=== PATIENT | male | born 1960 | race Caucasian/White ===

== ENCOUNTER 2021-04-21 10:08 | Outpatient (CLI) | payer OTHER, SELFPAY ==
[2021-04-21 10:23] LABS: Basophils Absolute Auto 0.03 K/mm3 (0.00-0.10); Basophils Percent Auto 0.4 % (0.0-1.0); Eosinophils Absolute Auto 0.06 K/mm3 (0.02-0.50); Eosinophils Percent Auto 0.8 % (1.0-6.0); Hemoglobin 14.4 g/dL (14.0-18.0); Immature Granulocyte Absolute 0.02 K/mm3 (0.00-0.00); Immature Granulocyte Percent A 0.3 % (0.0-0.0); Lymphocytes Absolute Auto 0.57 K/mm3 (1.10-4.50); Mean Corpuscular HGB Conc 32.7 g/dL (32.0-36.0); Mean Corpuscular Hemoglobin 28.6 pg (27.0-31.0); Mean Corpuscular Volume 87.3 fL (78.0-102.0); Mean Platelet Volume 9.2 fl (8.7-11.0); Monocytes Absolute Auto 1.01 K/mm3 (0.10-0.90); Monocytes Percent Auto 14.1 % (2.0-11.0); Neutrophils Absolute Auto 5.5 K/mm3 (1.7-7.2); Neutrophils Percent Auto 76.4 % (50.0-70.0); Platelet Count Result 206 K/mm3 (150-420); Red Blood Count 5.04 M/mm3 (4.70-6.10); Red Cell Distribution Width 12.6 % (11.6-14.4); White Blood Count 7.2 K/mm3 (4.8-10.8)
[2021-04-21 11:13] LABS: Alanine Aminotransferase 41 U/L (16-63); Albumin Level 3.5 g/dL (3.4-5.0); Alkaline Phosphatase 99 U/L (46-116); Anion Gap 7 mmol/L (8-16); Aspartate Amino Transferase 23 U/L (15-37); Bilirubin,Total 0.3 mg/dL (0.00-1.00); Blood Urea Nitrogen 22 mg/dL (7-18); Calcium 9.4 mg/dL (8.5-10.1); Carbon Dioxide 32 mmol/L (21-32); Chloride 102 mmol/L (98-108); Estimated Glomerular Filt Rate > 60; Glucose 92 mg/dL (70-99); Magnesium 1.9 mg/dL (1.8-2.4); Osmolality Calculated 295 mOsm/kg (285-295); Potassium 4.5 mmol/L (3.5-5.1); Sodium 141 mmol/L (136-145); Total Protein 6.9 g/dL (6.4-8.2)
== END 2021-04-21 10:09 | disposition home or self-care (01) ==
LOC: CHSLAB 10:13
PROVIDERS: Visit Provider Internal Medicine Hematology & Oncology
DX: C01 Malignant neoplasm of base of tongue (principal)
CPT/HCPCS: 36415; 80053; 83735; 85025

== ENCOUNTER 2021-04-23 07:19 | Outpatient (CLI) | payer OTHER, SELFPAY ==
--- NOTE | ~2021-04-23 | CT_ITS ---
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 Drainage. TECHNIQUE: Spiral CT of the neck, chest, abdomen and pelvis was performed following intravenous injec tion of 100 mL Omnipaque 350. Axial, coronal and sagittal images of the neck were reviewed. Axial, coronal and sagittal images of the chest were reviewed. Coronal maximum intensity pixel images of ch est reviewed. Axial, coronal and sagittal images of the abdomen and pelvis were reviewed. The dose- length product (DLP) for this examination was 936.24 mGy-cm. The exposure was tailored according to patient size (auto mA exposure control), and iterative reconstruction (ASIR) was used as additional d ose reduction technique. There is no prior study for comparison. FINDINGS: NECK: There is asymmetry of the airway with thickening of the mucosal regions epiglottis, the aryepig lottic folds, effacement of the left preglottic fat, the left vallecula and piriform sinus. Also the lower aspect of the left sternocleidomastoid is more pronounced than the contralateral side, could be from edema as well. The left internal jugular vein tapers down to the mid cervical level, and is not visualized below, could be effaced from edema. There is no intraluminal filling defect, no venous th rombus identified. Probably all edema from recent radiation treatment. Nasopharynx unremarkable. Righ t internal jugular vein widely patent. Codominant vertebral arteries. The thyroid gland is unremarkab le. The submandibular and parotid glands are symmetric. There is no cervical lymphadenopathy. Th ere are no masses identified. Mild bilateral carotid bulb arterial sclerosis without stenosis. The orbits are unremarkable. Visualized sinuses and mastoid air cells are well aerated. There is advanced cervical spondylosis. CHEST: There is a right-sided portacatheter. There is mild to moderate emphysema. There are approxima tely 30 pulmonary metastases, several demonstrating some amount of cavitation. These measure up to ab out 8 mm in diameter. There are no pleural or pericardial effusions. Tracheobronchial tree is guillen nt. Subcarinal lymph node or nodes measuring 1.4 x 3.1 cm, indeterminate. There is no pneumothorax . Heart normal in size. There is mild coronary arterial calcification, arterial sclerosis. ABDOMEN PELVIS: The liver, spleen, adrenal glands and pancreas are unremarkable. Gallbladder is unre markable. No biliary obstruction. Portal and splenic veins are patent. Kidneys enhance symmetrical ly. There is no hydronephrosis. There is 2.2 cm right renal cyst. The prostate is unremarkable. Th e bladder is unremarkable. There is no retroperitoneal or pelvic lymphadenopathy. There is moderat e scattered arteriosclerotic disease. The appendix is not positively visualized. There is no pericecal inflammatory change to suggest appe ndicitis. The stomach and small bowel are unremarkable. There is expected amount of colonic stool. No free intraperitoneal gas. There are no osteoblastic or osteolytic lesions identified. IMPRESSION: 1. Left-sided oropharyngeal, laryngeal, sternocleidomastoid edema likely radiation related change. 2. Scattered subcentimeter pulmonary metastases. 3. Subcarinal lymphadenopathy, indeterminate. 4. Unremarkable abdomen, pelvis. Reviewed, dictated and finalized at location A. IMPRESSION: 1. Left-sided oropharyngeal, laryngeal, sternocleidomastoid edema likely radia tion related change. 2. Scattered subcentimeter pulmonary metastases. 3. Subcarinal lymphadenopathy, indeterminate. 4. Unremarkable abdomen, pelvis.
== END 2021-04-23 07:20 | disposition home or self-care (01) ==
LOC: CHSIMG 07:21
PROVIDERS: Visit Provider Internal Medicine Hematology & Oncology
DX: C01 Malignant neoplasm of base of tongue (principal); C44.42 Squamous cell carcinoma of skin of scalp and neck
CPT/HCPCS: 70491; 71260; 74177; Q9967

== ENCOUNTER 2021-05-14 08:22 | Outpatient (CLI) | payer OTHER, SELFPAY ==
[2021-05-14] MEDS: SODIUM CHLORIDE 0.9% IV 250 ML 10 ML IVPB (08:45)
[2021-05-14 08:48] LABS: Basophils Absolute Auto 0.03 K/mm3 (0.00-0.10); Basophils Percent Auto 0.5 % (0.0-1.0); Eosinophils Absolute Auto 0.03 K/mm3 (0.02-0.50); Eosinophils Percent Auto 0.5 % (1.0-6.0); Hematocrit 41.7 % (40.0-54.0); Hemoglobin 13.6 g/dL (14.0-18.0); Immature Granulocyte Absolute 0.03 K/mm3 (0.00-0.00); Immature Granulocyte Percent A 0.5 % (0.0-0.0); Lymphocytes Absolute Auto 0.53 K/mm3 (1.10-4.50); Lymphocytes Percent Auto 8.1 % (18.0-42.0); Mean Corpuscular HGB Conc 32.6 g/dL (32.0-36.0); Mean Corpuscular Hemoglobin 28.8 pg (27.0-31.0); Mean Corpuscular Volume 88.3 fL (78.0-102.0); Mean Platelet Volume 9.9 fl (8.7-11.0); Monocytes Absolute Auto 0.67 K/mm3 (0.10-0.90); Monocytes Percent Auto 10.2 % (2.0-11.0); Neutrophils Absolute Auto 5.3 K/mm3 (1.7-7.2); Neutrophils Percent Auto 80.2 % (50.0-70.0); Platelet Count Result 215 K/mm3 (150-420); Red Blood Count 4.72 M/mm3 (4.70-6.10); Red Cell Distribution Width 13.5 % (11.6-14.4); White Blood Count 6.6 K/mm3 (4.8-10.8)
[2021-05-14] MEDS: diphenhydrAMINE HCl INJ 50 MG/ML VIAL 25 MG IV PUSH (08:58)
[2021-05-14] MEDS: FAMOTIDINE 20 MG/2 ML VIAL IV PUSH (08:59)
[2021-05-14 09:04] LABS: Alanine Aminotransferase 31 U/L (16-63); Albumin Level 3.5 g/dL (3.4-5.0); Alkaline Phosphatase 122 U/L (46-116); Anion Gap 9 mmol/L (8-16); Aspartate Amino Transferase 23 U/L (15-37); Bilirubin,Total 0.5 mg/dL (0.00-1.00); Blood Urea Nitrogen 12 mg/dL (7-18); Calcium 8.9 mg/dL (8.5-10.1); Carbon Dioxide 27 mmol/L (21-32); Chloride 100 mmol/L (98-108); Estimated Glomerular Filt Rate > 60; Glucose 148 mg/dL (70-99); Magnesium 1.7 mg/dL (1.8-2.4); Osmolality Calculated 284 mOsm/kg (285-295); Potassium 4.3 mmol/L (3.5-5.1); Sodium 136 mmol/L (136-145); Total Protein 7.1 g/dL (6.4-8.2)
[2021-05-14 09:07] VITALS: BP 128/79; PULSE 80; RESP 14; TEMP 36.6; O2SAT 98
[2021-05-14 09:08] VITALS: BMI 17.4
[2021-05-14] MEDS: FOSAPREPITANT DIMEGLUMINE 150 MG in SODIUM CHLORIDE 0.9% IV 250 ML 500 MG IVPB (09:35)
[2021-05-14 13:30] VITALS: BP 109/64; PULSE 78; RESP 14; TEMP 36.4; O2SAT 98
--- NOTE | 2021-05-14 13:33 | PC.NURSE ---
Patient here for Cycle 1 Day 1 of Erbitux, Carboplatin, 5 FU chemo regimen. Labs drawn and reviewed. Ok'd to proceed with chemo. Mag level 1.7- will need prn dose 1 gm Mag per order today. Education given on chemo. All concerns answered. Chemo regimen administered. SEE MAR. Patient left with Take home pump of 5 FU. Will return 05/15/21 at 1300 to get cartridge changed out of 5 FU and continue at home infusion until Tuesday05/17/21 1300. Will come Tuesday to get pump taken off and chemo bag discarded. Tolerated Chemo well today. Safe exit of hospital.
== END 2021-05-14 08:23 | disposition home or self-care (01) ==
LOC: CHSTREATRM 08:25
PROVIDERS: Visit Provider Internal Medicine Hematology & Oncology
DX: Z51.11 Encounter for antineoplastic chemotherapy (principal); C02.9 Malignant neoplasm of tongue, unspecified
CPT/HCPCS: 36415; 80053; 83735; 85025; 96367; 96375; 96413; 96415; 96416; 96417; J1100; J1200; J1453; J2405; J3475; J7050; J9045; J9055; J9190

== ENCOUNTER 2021-05-15 12:19 | Outpatient (CLI) | payer OTHER, SELFPAY ==
--- NOTE | 2021-05-15 12:51 | PC.NURSE ---
Pt to Outpatient infusion center. Chemo bag changed out with new pump and medication. Pt tolerating chemo infusion well. Instructed to return Tuesday to be deaccessed.
== END 2021-05-15 12:20 | disposition home or self-care (01) ==
PROVIDERS: Visit Provider Internal Medicine Hematology & Oncology
DX: Z45.1 Encounter for adjustment and management of infusion pump (principal); C02.9 Malignant neoplasm of tongue, unspecified
CPT/HCPCS: 96416; J9190

== ENCOUNTER 2021-05-21 08:20 | Outpatient (CLI) | payer OTHER, SELFPAY ==
--- NOTE | 2021-05-21 08:45 | PC.NURSE ---
Pt to Outpatient Infusion Center for chemo. A&Ox3. States he has had some nausea and sore tongue over the last few days. Has no other complaints. PORT accessed without difficulty. Blood drawn and sent to lab. Pt oriented to room. Call gaitan in reach. Breakfast tray ordered. Reminded to call with needs.
[2021-05-21 08:51] LABS: Basophils Absolute Auto 0.03 K/mm3 (0.00-0.10); Basophils Percent Auto 0.6 % (0.0-1.0); Eosinophils Absolute Auto 0.06 K/mm3 (0.02-0.50); Eosinophils Percent Auto 1.3 % (1.0-6.0); Hemoglobin 13.5 g/dL (14.0-18.0); Immature Granulocyte Absolute 0.03 K/mm3 (0.00-0.00); Immature Granulocyte Percent A 0.6 % (0.0-0.0); Lymphocytes Absolute Auto 0.53 K/mm3 (1.10-4.50); Lymphocytes Percent Auto 11.3 % (18.0-42.0); Mean Corpuscular HGB Conc 33.8 g/dL (32.0-36.0); Mean Corpuscular Hemoglobin 29.3 pg (27.0-31.0); Mean Platelet Volume 9.4 fl (8.7-11.0); Monocytes Absolute Auto 0.42 K/mm3 (0.10-0.90); Neutrophils Absolute Auto 3.6 K/mm3 (1.7-7.2); Neutrophils Percent Auto 77.2 % (50.0-70.0); Platelet Count Result 191 K/mm3 (150-420); Red Cell Distribution Width 13.2 % (11.6-14.4); White Blood Count 4.7 K/mm3 (4.8-10.8)
[2021-05-21 09:24] LABS: Alanine Aminotransferase 31 U/L (16-63); Albumin Level 3.5 g/dL (3.4-5.0); Alkaline Phosphatase 119 U/L (46-116); Anion Gap 8 mmol/L (8-16); Aspartate Amino Transferase 16 U/L (15-37); Bilirubin,Total 0.3 mg/dL (0.00-1.00); Blood Urea Nitrogen 17 mg/dL (7-18); Calcium 8.6 mg/dL (8.5-10.1); Carbon Dioxide 28 mmol/L (21-32); Chloride 100 mmol/L (98-108); Estimated Glomerular Filt Rate > 60; Glucose 109 mg/dL (70-99); Magnesium 2.1 mg/dL (1.8-2.4); Osmolality Calculated 284 mOsm/kg (285-295); Sodium 136 mmol/L (136-145); Total Protein 6.9 g/dL (6.4-8.2)
--- NOTE | 2021-05-21 09:56 | PC.NURSE ---
Pharmacy does not have med in house. Tech going to [facility] to roll picker Erbitux. Pt chooses to wait for med to get infused today.
[2021-05-21] MEDS: SODIUM CHLORIDE 0.9% IV 250 ML 10 ML IVPB (11:04)
[2021-05-21 11:18] VITALS: BP 101/60; PULSE 71; RESP 20; TEMP 36.6; O2SAT 100
[2021-05-21] MEDS: diphenhydrAMINE HCl INJ 50 MG/ML VIAL 25 MG IV PUSH (11:35)
[2021-05-21] MEDS: FAMOTIDINE 20 MG/ISO 50 ML 20 MG/50 ML BAG 100 MG IVPB (11:36)
[2021-05-21] MEDS: HEPARIN SODIUM LOCK FLUSH 500 UNITS/5 ML SYRINGE IV PUSH (13:07)
--- NOTE | 2021-05-21 13:20 | PC.NURSE ---
All medications administered as ordered. Pt tolerated well. Has on questions or concerns. Discharged to home ambulatory per self.
== END 2021-05-21 08:21 | disposition home or self-care (01) ==
LOC: CHSTREATRM 08:26
PROVIDERS: Visit Provider Internal Medicine Hematology & Oncology
DX: Z51.11 Encounter for antineoplastic chemotherapy (principal); C02.9 Malignant neoplasm of tongue, unspecified
CPT/HCPCS: 36415; 80053; 83735; 85025; 96365; 96367; 96368; 96374; 96375; 96413; J1100; J1200; J7050; J9055

== ENCOUNTER 2021-05-28 08:13 | Outpatient (CLI) | payer OTHER, SELFPAY ==
[2021-05-28 08:37] VITALS: BP 107/67; PULSE 72; RESP 14; TEMP 36.1; O2SAT 98
[2021-05-28 08:38] VITALS: BMI 17.4
[2021-05-28 08:51] LABS: Basophils Absolute Auto 0.02 K/mm3 (0.00-0.10); Basophils Percent Auto 0.4 % (0.0-1.0); Eosinophils Absolute Auto 0.06 K/mm3 (0.02-0.50); Eosinophils Percent Auto 1.1 % (1.0-6.0); Hemoglobin 13.1 g/dL (14.0-18.0); Immature Granulocyte Absolute 0.03 K/mm3 (0.00-0.00); Immature Granulocyte Percent A 0.5 % (0.0-0.0); Immature Platelet Fraction Pct 3.8 % (1.0-7.0); Lymphocytes Absolute Auto 0.55 K/mm3 (1.10-4.50); Lymphocytes Percent Auto 9.8 % (18.0-42.0); Mean Corpuscular HGB Conc 34.5 g/dL (32.0-36.0); Mean Corpuscular Hemoglobin 29.9 pg (27.0-31.0); Mean Corpuscular Volume 86.8 fL (78.0-102.0); Monocytes Absolute Auto 0.62 K/mm3 (0.10-0.90); Neutrophils Absolute Auto 4.4 K/mm3 (1.7-7.2); Neutrophils Percent Auto 77.2 % (50.0-70.0); Platelet Count Result 98 K/mm3 (150-420); Red Blood Count 4.38 M/mm3 (4.70-6.10); Red Cell Distribution Width 13.2 % (11.6-14.4); White Blood Count 5.6 K/mm3 (4.8-10.8)
[2021-05-28 09:01] LABS: Alanine Aminotransferase 25 U/L (16-63); Albumin Level 3.3 g/dL (3.4-5.0); Alkaline Phosphatase 147 U/L (46-116); Anion Gap 7 mmol/L (8-16); Aspartate Amino Transferase 15 U/L (15-37); Bilirubin,Total 0.2 mg/dL (0.00-1.00); Blood Urea Nitrogen 8 mg/dL (7-18); Carbon Dioxide 29 mmol/L (21-32); Chloride 104 mmol/L (98-108); Estimated CRCL calculation 64 ml/min; Estimated Glomerular Filt Rate > 60; Glucose 106 mg/dL (70-99); Magnesium 2.2 mg/dL (1.8-2.4); Osmolality Calculated 288 mOsm/kg (285-295); Potassium 3.9 mmol/L (3.5-5.1); Sodium 140 mmol/L (136-145); Total Protein 6.8 g/dL (6.4-8.2)
[2021-05-28] MEDS: FAMOTIDINE 20 MG/2 ML VIAL (09:10)
[2021-05-28] MEDS: SODIUM CHLORIDE 0.9% IV 250 ML 30 ML (09:11)
[2021-05-28] MEDS: diphenhydrAMINE HCl INJ 50 MG/ML VIAL (09:13)
[2021-05-28] MEDS: DEXAMETHASONE SOD PHOS INJ 4 MG/ML VIAL 12 MG IV PUSH (09:24)
--- NOTE | 2021-05-28 10:28 | PC.NURSE ---
Patient here for day 15 of cycle 1 Erbitux, Carbo, 5 FU q 21 day chemo. Education on chemo continues each session. Concerns always answered. Slight Erbitux rash noted to upper cheeks and bridge of nose. Not bothering patient at this time. Labs drawn and reviewed. Ok'd for chemo today. Chemo administered by patent port a cath. SEE MAR. Tolerated well. Will have phone visit from Dr. Dudley later today reported. Will return 06/04/21 for Day 1 of cycle [address] Dudley. Safe exit of hospital.
[2021-05-28] MEDS: HEPARIN SODIUM LOCK FLUSH 500 UNITS/5 ML SYRINGE IV PUSH (10:39)
[2021-05-28 10:44] VITALS: BP 110/69; PULSE 78; RESP 14; O2SAT 98
== END 2021-05-28 08:14 | disposition home or self-care (01) ==
LOC: CHSTREATRM 08:19
PROVIDERS: Visit Provider Internal Medicine Hematology & Oncology
DX: Z51.11 Encounter for antineoplastic chemotherapy (principal); C01 Malignant neoplasm of base of tongue
CPT/HCPCS: 36415; 80053; 83735; 85025; 85055; 96375; 96413; J1100; J1200; J7050; J9055

== ENCOUNTER 2021-06-04 08:17 | Outpatient (CLI) | payer OTHER, SELFPAY ==
[2021-06-04 08:37] VITALS: BMI 18.0
[2021-06-04 08:41] VITALS: BP 106/70; PULSE 84; RESP 14; TEMP 35.9; O2SAT 98
[2021-06-04 08:42] LABS: Basophils Absolute Auto 0.01 K/mm3 (0.00-0.10); Basophils Percent Auto 0.2 % (0.0-1.0); Eosinophils Absolute Auto 0.06 K/mm3 (0.02-0.50); Eosinophils Percent Auto 1.4 % (1.0-6.0); Hematocrit 36.4 % (40.0-54.0); Hemoglobin 12.1 g/dL (14.0-18.0); Immature Granulocyte Absolute 0.01 K/mm3 (0.00-0.00); Immature Granulocyte Percent A 0.2 % (0.0-0.0); Lymphocytes Absolute Auto 0.65 K/mm3 (1.10-4.50); Lymphocytes Percent Auto 14.9 % (18.0-42.0); Mean Corpuscular HGB Conc 33.2 g/dL (32.0-36.0); Mean Corpuscular Hemoglobin 29.5 pg (27.0-31.0); Mean Corpuscular Volume 88.8 fL (78.0-102.0); Mean Platelet Volume 9.9 fl (8.7-11.0); Monocytes Absolute Auto 0.65 K/mm3 (0.10-0.90); Monocytes Percent Auto 14.9 % (2.0-11.0); Neutrophils Percent Auto 68.4 % (50.0-70.0); Platelet Count Result 105 K/mm3 (150-420); Red Cell Distribution Width 14.3 % (11.6-14.4); White Blood Count 4.4 K/mm3 (4.8-10.8)
[2021-06-04] MEDS: FAMOTIDINE 20 MG/2 ML VIAL IV PUSH (08:56)
[2021-06-04 08:57] LABS: Alanine Aminotransferase 30 U/L (16-63); Albumin Level 2.9 g/dL (3.4-5.0); Alkaline Phosphatase 137 U/L (46-116); Anion Gap 8 mmol/L (8-16); Aspartate Amino Transferase 16 U/L (15-37); Bilirubin,Total 0.2 mg/dL (0.00-1.00); Blood Urea Nitrogen 11 mg/dL (7-18); Calcium 8.2 mg/dL (8.5-10.1); Carbon Dioxide 29 mmol/L (21-32); Chloride 105 mmol/L (98-108); Estimated CRCL calculation 59 ml/min; Estimated Glomerular Filt Rate > 60; Glucose 83 mg/dL (70-99); Magnesium 1.8 mg/dL (1.8-2.4); Osmolality Calculated 292 mOsm/kg (285-295); Sodium 142 mmol/L (136-145); Total Protein 6.3 g/dL (6.4-8.2)
[2021-06-04] MEDS: diphenhydrAMINE HCl INJ 50 MG/ML VIAL 25 MG IV PUSH (08:59)
[2021-06-04] MEDS: SODIUM CHLORIDE 0.9% IV 250 ML 10 ML IVPB (09:00)
[2021-06-04] MEDS: FOSAPREPITANT DIMEGLUMINE 150 MG in SODIUM CHLORIDE 0.9% IV 250 ML 500 MG IVPB (09:39)
[2021-06-04 13:04] VITALS: BP 109/62; PULSE 80; RESP 14; O2SAT 98
--- NOTE | 2021-06-04 13:06 | PC.NURSE ---
Patent here for cycle 2 day 1 of Erbitux, Carboplatin, 5FU chemo therapy regime. No weight loss noted or reported. Appetite fair. Bridge of nose with slight red Erbitux rash. Reviewed chemo meds etc. Labs drawn and ok'd. Chemo regimen administered SEE OCT. Tolerated well. Patient going home on continues 5 FU infusion on home pump. Will return tomorrow at 1300 to get cartridge changed out. Safe exit of hospital.
== END 2021-06-04 08:18 | disposition home or self-care (01) ==
LOC: CHSTREATRM 08:21
PROVIDERS: Visit Provider Internal Medicine Hematology & Oncology
DX: Z51.11 Encounter for antineoplastic chemotherapy (principal); C02.9 Malignant neoplasm of tongue, unspecified
CPT/HCPCS: 36415; 80053; 83735; 85025; 85055; 96367; 96375; 96413; 96416; 96417; J1100; J1200; J1453; J2405; J3475; J7050; J9045; J9055; J9190

== ENCOUNTER 2021-06-05 12:43 | Outpatient (CLI) | payer OTHER, SELFPAY ==
[2021-06-05 13:39] VITALS: BP 107/68; PULSE 78; RESP 14; TEMP 36.6; O2SAT 98
[2021-06-05 13:40] VITALS: BMI 17.6
--- NOTE | 2021-06-05 13:41 | PC.NURSE ---
Patient here for 5 FU chemo cartridge change out on continues 5 FU on home pump for 4 days. No concerns voiced. 5 FU cartridge via patent port a cath changed SEE OCT. Education on chemo and chemo pump reinforced. Safe exit of hospital. Will return Tuesday to get pump taken and port needle deaccessed.
== END 2021-06-05 12:44 | disposition home or self-care (01) ==
PROVIDERS: Visit Provider Internal Medicine Hematology & Oncology
DX: Z51.11 Encounter for antineoplastic chemotherapy (principal)
CPT/HCPCS: 96416; J7050; J9190

== ENCOUNTER 2021-06-11 08:22 | Outpatient (CLI) | payer OTHER, SELFPAY ==
[2021-06-11 08:40] VITALS: BP 118/85; PULSE 109; RESP 16; TEMP 36.8; O2SAT 99
[2021-06-11 08:41] VITALS: BMI 17.0
[2021-06-11 08:42] LABS: Basophils Absolute Auto 0.01 K/mm3 (0.00-0.10); Basophils Percent Auto 0.2 % (0.0-1.0); Eosinophils Absolute Auto 0.09 K/mm3 (0.02-0.50); Hematocrit 41.4 % (40.0-54.0); Hemoglobin 14.3 g/dL (14.0-18.0); Immature Granulocyte Absolute 0.02 K/mm3 (0.00-0.00); Immature Granulocyte Percent A 0.5 % (0.0-0.0); Lymphocytes Absolute Auto 1.15 K/mm3 (1.10-4.50); Mean Corpuscular HGB Conc 34.5 g/dL (32.0-36.0); Mean Corpuscular Hemoglobin 30.2 pg (27.0-31.0); Mean Corpuscular Volume 87.5 fL (78.0-102.0); Mean Platelet Volume 9.8 fl (8.7-11.0); Monocytes Absolute Auto 0.47 K/mm3 (0.10-0.90); Monocytes Percent Auto 10.6 % (2.0-11.0); Neutrophils Absolute Auto 2.7 K/mm3 (1.7-7.2); Neutrophils Percent Auto 60.7 % (50.0-70.0); Platelet Count Result 218 K/mm3 (150-420); Red Blood Count 4.73 M/mm3 (4.70-6.10); Red Cell Distribution Width 14.1 % (11.6-14.4); White Blood Count 4.4 K/mm3 (4.8-10.8)
[2021-06-11 08:57] LABS: Alanine Aminotransferase 36 U/L (16-63); Albumin Level 3.4 g/dL (3.4-5.0); Alkaline Phosphatase 152 U/L (46-116); Anion Gap 10 mmol/L (8-16); Aspartate Amino Transferase 23 U/L (15-37); Bilirubin,Total 0.4 mg/dL (0.00-1.00); Blood Urea Nitrogen 25 mg/dL (7-18); Calcium 8.8 mg/dL (8.5-10.1); Carbon Dioxide 29 mmol/L (21-32); Chloride 96 mmol/L (98-108); Estimated CRCL calculation 42 ml/min; Estimated Glomerular Filt Rate 58; Glucose 158 mg/dL (70-99); Magnesium 2.1 mg/dL (1.8-2.4); Osmolality Calculated 287 mOsm/kg (285-295); Potassium 3.6 mmol/L (3.5-5.1); Sodium 135 mmol/L (136-145); Total Protein 7.3 g/dL (6.4-8.2)
[2021-06-11] MEDS: SODIUM CHLORIDE 0.9% IV 250 ML 10 ML IVPB (09:07)
[2021-06-11] MEDS: FAMOTIDINE 20 MG/2 ML VIAL IV PUSH (09:07)
[2021-06-11] MEDS: diphenhydrAMINE HCl INJ 50 MG/ML VIAL 25 MG IV PUSH (09:08)
[2021-06-11] MEDS: DEXAMETHASONE SOD PHOS INJ 4 MG/ML VIAL 12 MG IV PUSH (09:26)
[2021-06-11] MEDS: HEPARIN SODIUM LOCK FLUSH 500 UNITS/5 ML SYRINGE IV PUSH (10:51)
[2021-06-11 10:53] VITALS: BP 109/71; PULSE 92; RESP 14; TEMP 36.7; O2SAT 99
--- NOTE | 2021-06-11 10:54 | PC.NURSE ---
Patient here for cycle 2 day 8 Chemo therapy. Patient lost 2 pounds. Having more nausea. We talked at length about nausea medications at home and how and when to use them and diet. Last week was long chemo with carboplatin, 5 fu, and Erbitux and this was expected. Labs drawn and reviewed. Actually labs look good. Mag 2.1. No prn IV Magnesium needed. Today only getting Erbitux. Chemo regimen for day 8 administered via patent port a cath. Tolerated well. Patient actually felt and look better prior to discharge today. Was able to drink some tea and some breakfast. Will return for day 15 of cycle 2 06/18/21 at 0830. Safe exit of hospital.
== END 2021-06-11 08:23 | disposition home or self-care (01) ==
LOC: CHSTREATRM 08:23
PROVIDERS: Visit Provider Internal Medicine Hematology & Oncology
DX: Z51.11 Encounter for antineoplastic chemotherapy (principal); C02.9 Malignant neoplasm of tongue, unspecified
CPT/HCPCS: 80053; 83735; 85025; 96375; 96413; J1200; J7050; J9055

== ENCOUNTER 2021-06-18 08:08 | Outpatient (CLI) | payer OTHER, SELFPAY ==
[2021-06-18 08:29] LABS: Hematocrit 36.7 % (40.0-54.0); Hemoglobin 12.7 g/dL (14.0-18.0); Mean Corpuscular HGB Conc 34.6 g/dL (32.0-36.0); Mean Corpuscular Hemoglobin 30.5 pg (27.0-31.0); Mean Corpuscular Volume 88.2 fL (78.0-102.0); Mean Platelet Volume 9.5 fl (8.7-11.0); Platelet Count Result 182 K/mm3 (150-420); Red Blood Count 4.16 M/mm3 (4.70-6.10); Red Cell Distribution Width 14.7 % (11.6-14.4); White Blood Count 8.3 K/mm3 (4.8-10.8)
[2021-06-18 08:31] VITALS: BP 112/70; PULSE 86; RESP 14; TEMP 36.5; O2SAT 98; BMI 16.5
[2021-06-18 08:41] LABS: Alanine Aminotransferase 31 U/L (16-63); Albumin Level 3.1 g/dL (3.4-5.0); Alkaline Phosphatase 142 U/L (46-116); Anion Gap 10 mmol/L (8-16); Aspartate Amino Transferase 19 U/L (15-37); Bilirubin,Total 0.3 mg/dL (0.00-1.00); Blood Urea Nitrogen 13 mg/dL (7-18); Calcium 8.7 mg/dL (8.5-10.1); Carbon Dioxide 28 mmol/L (21-32); Chloride 97 mmol/L (98-108); Estimated CRCL calculation 46 ml/min; Estimated Glomerular Filt Rate > 60; Glucose 131 mg/dL (70-99); Magnesium 1.9 mg/dL (1.8-2.4); Osmolality Calculated 282 mOsm/kg (285-295); Potassium 3.8 mmol/L (3.5-5.1); Sodium 135 mmol/L (136-145); Total Protein 7.1 g/dL (6.4-8.2)
[2021-06-18 08:49] LABS: Band Neutrophils Percent 0 % (0-6); Eosinophils Absolute Manual 0.08 K/mm3 (0.02-0.5); Eosinophils Percent Manual 1 % (1-6); Lymphocytes Absolute Manual 0.99 K/mm3 (1.1-4.5); Lymphocytes Percent Manual 12 % (18-44); Monocytes Absolute Manual 0.83 K/mm3 (0.1-0.90); Monocytes Percent Manual 10 % (3-9); Neutrophils Absolute Manual 6.39 K/mm3 (1.3-6.7); Neutrophils Percent Manual 77 % (46-73); Platelet Estimate Adequate (Adequate); Total Cells Counted 100
[2021-06-18] MEDS: diphenhydrAMINE HCl INJ 50 MG/ML VIAL 25 MG IV PUSH (09:00)
[2021-06-18] MEDS: FAMOTIDINE 20 MG/ISO 50 ML 20 MG/50 ML BAG 100 MG IVPB (09:06)
[2021-06-18] MEDS: SODIUM CHLORIDE 0.9% IV 250 ML 10 ML IVPB (09:07)
[2021-06-18] MEDS: DEXAMETHASONE SOD PHOS INJ 4 MG/ML VIAL 12 MG IV PUSH (09:15)
[2021-06-18] MEDS: HEPARIN SODIUM LOCK FLUSH 500 UNITS/5 ML SYRINGE IV PUSH (11:12)
[2021-06-18 11:15] VITALS: BP 117/63; PULSE 72; RESP 14; TEMP 36; O2SAT 99
--- NOTE | 2021-06-18 11:17 | PC.NURSE ---
Patient here for cycle 2 day 15 Erbitux/Carbo/5 Fu regimen. Just getting Erbitux today. Labs drawn and ok'd. Magnesium 1.9 Will need Magnesium 1 gm today. Chemo regimen administered. SEE MAR. Tolerated well. Safe exit of hospital. Will return for Cycle 3 day 1 next 06/25/21 at 0830.
== END 2021-06-18 08:09 | disposition home or self-care (01) ==
LOC: CHSTREATRM 08:12
PROVIDERS: Visit Provider Internal Medicine Hematology & Oncology
DX: Z51.11 Encounter for antineoplastic chemotherapy (principal); C02.9 Malignant neoplasm of tongue, unspecified
CPT/HCPCS: 36415; 80053; 83735; 85025; 96367; 96368; 96375; 96413; J1100; J1200; J3475; J7050; J9055

== ENCOUNTER 2021-06-25 08:14 | Outpatient (CLI) | payer OTHER, SELFPAY ==
[2021-06-25 08:35] VITALS: BMI 16.7
[2021-06-25 08:36] VITALS: BP 109/83; PULSE 88; RESP 14; TEMP 36.3; O2SAT 98
[2021-06-25 08:39] LABS: Hematocrit 34.8 % (40.0-54.0); Hemoglobin 11.7 g/dL (14.0-18.0); Mean Corpuscular HGB Conc 33.6 g/dL (32.0-36.0); Mean Corpuscular Hemoglobin 30.8 pg (27.0-31.0); Mean Corpuscular Volume 91.6 fL (78.0-102.0); Mean Platelet Volume 9.5 fl (8.7-11.0); Platelet Count Result 177 K/mm3 (150-420); Red Cell Distribution Width 15.9 % (11.6-14.4); White Blood Count 7.2 K/mm3 (4.8-10.8)
[2021-06-25 08:56] LABS: Band Neutrophils Percent 2 % (0-6); Lymphocytes Absolute Manual 0.72 K/mm3 (1.1-4.5); Lymphocytes Percent Manual 10 % (18-44); Monocytes Percent Manual 14 % (3-9); Neutrophils Absolute Manual 5.47 K/mm3 (1.3-6.7); Neutrophils Percent Manual 74 % (46-73); Platelet Estimate Adequate (Adequate); Total Cells Counted 100
[2021-06-25 09:02] LABS: Alanine Aminotransferase 30 U/L (16-63); Albumin Level 2.8 g/dL (3.4-5.0); Alkaline Phosphatase 109 U/L (46-116); Anion Gap 11 mmol/L (8-16); Aspartate Amino Transferase 21 U/L (15-37); Bilirubin,Total 0.4 mg/dL (0.00-1.00); Blood Urea Nitrogen 11 mg/dL (7-18); Calcium 8.5 mg/dL (8.5-10.1); Carbon Dioxide 25 mmol/L (21-32); Chloride 101 mmol/L (98-108); Estimated CRCL calculation 66 ml/min; Estimated Glomerular Filt Rate > 60; Glucose 127 mg/dL (70-99); Magnesium 1.5 mg/dL (1.8-2.4); Osmolality Calculated 285 mOsm/kg (285-295); Potassium 3.7 mmol/L (3.5-5.1); Sodium 137 mmol/L (136-145); Total Protein 6.8 g/dL (6.4-8.2)
[2021-06-25] MEDS: FAMOTIDINE 20 MG/ISO 50 ML 20 MG/50 ML BAG 250 MG (09:10)
[2021-06-25] MEDS: SODIUM CHLORIDE 0.9% IV 250 ML 40 ML (09:20)
[2021-06-25] MEDS: diphenhydrAMINE HCl INJ 50 MG/ML VIAL (09:21)
[2021-06-25] MEDS: FOSAPREPITANT DIMEGLUMINE 150 MG in SODIUM CHLORIDE 0.9% IV 250 ML 500 MG IVPB (10:53)
[2021-06-25 13:52] VITALS: BP 129/65; PULSE 80; RESP 14; TEMP 36.6; O2SAT 98
--- NOTE | 2021-06-25 13:53 | PC.NURSE ---
Patient here for cycle 3 day 1 chemo -Erbitux,Carboplatin,5FU. Labs drawn and reviewed ok for chemo. Will get prn Magnesium 1 gm for Magnesium of 1.5. Reports felt better this week, but realizes that this is the big chemo day and he probably fell rough next [address] Dudley via phone 06/23/21. Chemo regime administered SEE OCT. Tolerated well. 5 FU chemo on take home pump started. Will return tomorrow 06/26/21 @ 1300 to get chemo cartridge changed out and will continue over the weekend with take home pump infusion until Tuesday. Safe exit of hospital.
== END 2021-06-25 08:15 | disposition home or self-care (01) ==
PROVIDERS: Visit Provider Internal Medicine Hematology & Oncology
DX: Z51.11 Encounter for antineoplastic chemotherapy (principal); C02.9 Malignant neoplasm of tongue, unspecified
CPT/HCPCS: 36415; 80053; 83735; 85025; 96367; 96372; 96375; 96413; 96416; 96417; J1100; J1200; J1453; J2405; J3475; J7050; J9045; J9055; J9190

== ENCOUNTER 2021-06-26 12:48 | Outpatient (CLI) | payer OTHER, SELFPAY ==
[2021-06-26 13:10] VITALS: BMI 16.7
[2021-06-26 13:11] VITALS: BP 130/71; PULSE 80; RESP 14; TEMP 36.4; O2SAT 97
--- NOTE | 2021-06-26 13:16 | PC.NURSE ---
Patient here for cartridge 5 fu change out on take home pump 5 fu infusion. No complaints voiced. Reports feels pretty good today. 5 Fu cartridge 5 fu changed out on pump. See OCT. Tolerated well. Will return Tuesday06/29/21 to get pump removed. Safe exit of hospital.
--- NOTE | 2021-06-29 13:03 | PC.NURSE ---
06/29/21 Patient tolerated 5 FU chemo infusion on take home pump well. Pump removed. Port flushed. No concerns voiced. Safe exit of hospital. Will return 07/12/21 0830 for chemo.
== END 2021-06-26 12:49 | disposition home or self-care (01) ==
PROVIDERS: Visit Provider Internal Medicine Hematology & Oncology
DX: Z45.1 Encounter for adjustment and management of infusion pump (principal); C02.9 Malignant neoplasm of tongue, unspecified
CPT/HCPCS: 96416; 99211; G0463; J9190

== ENCOUNTER 2021-07-02 08:16 | Outpatient (CLI) | payer OTHER, SELFPAY ==
[2021-07-02 08:29] VITALS: BMI 16.9
[2021-07-02 08:33] VITALS: PULSE 88; RESP 16; TEMP 36.6; O2SAT 100
[2021-07-02 08:42] LABS: Basophils Absolute Auto 0.01 K/mm3 (0.00-0.10); Basophils Percent Auto 0.2 % (0.0-1.0); Eosinophils Absolute Auto 0.11 K/mm3 (0.02-0.50); Eosinophils Percent Auto 2.2 % (1.0-6.0); Hematocrit 35.2 % (40.0-54.0); Hemoglobin 11.9 g/dL (14.0-18.0); Immature Granulocyte Absolute 0.03 K/mm3 (0.00-0.00); Immature Granulocyte Percent A 0.6 % (0.0-0.0); Mean Corpuscular HGB Conc 33.8 g/dL (32.0-36.0); Mean Corpuscular Hemoglobin 30.7 pg (27.0-31.0); Mean Platelet Volume 9.8 fl (8.7-11.0); Monocytes Absolute Auto 0.36 K/mm3 (0.10-0.90); Monocytes Percent Auto 7.2 % (2.0-11.0); Neutrophils Absolute Auto 3.7 K/mm3 (1.7-7.2); Neutrophils Percent Auto 73.8 % (50.0-70.0); Platelet Count Result 163 K/mm3 (150-420); Red Blood Count 3.87 M/mm3 (4.70-6.10); Red Cell Distribution Width 15.9 % (11.6-14.4)
[2021-07-02 08:56] LABS: Alanine Aminotransferase 22 U/L (16-63); Albumin Level 2.9 g/dL (3.4-5.0); Alkaline Phosphatase 115 U/L (46-116); Anion Gap 9 mmol/L (8-16); Aspartate Amino Transferase 15 U/L (15-37); Bilirubin,Total 0.4 mg/dL (0.00-1.00); Blood Urea Nitrogen 19 mg/dL (7-18); Calcium 8.9 mg/dL (8.5-10.1); Carbon Dioxide 27 mmol/L (21-32); Chloride 101 mmol/L (98-108); Estimated CRCL calculation 59 ml/min; Estimated Glomerular Filt Rate > 60; Glucose 110 mg/dL (70-99); Magnesium 1.8 mg/dL (1.8-2.4); Osmolality Calculated 287 mOsm/kg (285-295); Potassium 3.5 mmol/L (3.5-5.1); Sodium 137 mmol/L (136-145); Total Protein 7.1 g/dL (6.4-8.2)
[2021-07-02] MEDS: FAMOTIDINE 20 MG/2 ML VIAL (09:18)
[2021-07-02] MEDS: SODIUM CHLORIDE 0.9% IV 250 ML 30 ML (09:19)
[2021-07-02] MEDS: diphenhydrAMINE HCl INJ 50 MG/ML VIAL (09:19)
[2021-07-02] MEDS: DEXAMETHASONE SOD PHOS INJ 4 MG/ML VIAL 12 MG IV PUSH (09:40)
[2021-07-02] MEDS: HEPARIN SODIUM LOCK FLUSH 500 UNITS/5 ML SYRINGE (11:26)
[2021-07-02 11:37] VITALS: BP 115/62; PULSE 80; RESP 14; TEMP 36.6; O2SAT 99
--- NOTE | 2021-07-02 11:52 | PC.NURSE ---
Patient here for Cycle 3 day 8 of chemo regimen. Labs drawn, reviewed, and ok'd. Mag 1.8, but will be getting 1 gm Mag per order. Patient reports fatigue and also beginning of left ear ache. LM to Dr. Luis Enrique Daley's nurse about earache. Chemo regimen administered via patent port. SEE MAR. Tolerated well. Safe exit of hospital. Will return 07/08/21 for cycle 3 day 15
== END 2021-07-02 08:17 | disposition home or self-care (01) ==
LOC: CHSTREATRM 08:18
PROVIDERS: Visit Provider Internal Medicine Hematology & Oncology
DX: Z51.11 Encounter for antineoplastic chemotherapy (principal); C02.9 Malignant neoplasm of tongue, unspecified
CPT/HCPCS: 36415; 80053; 83735; 85025; 96367; 96375; 96413; J1100; J1200; J3475; J7050; J9055

== ENCOUNTER 2021-07-08 08:21 | Outpatient (CLI) | payer OTHER, SELFPAY ==
[2021-07-08] MEDS: SODIUM CHLORIDE 0.9% IV 250 ML 10 ML IVPB (08:30)
[2021-07-08 08:39] VITALS: BP 108/80; PULSE 88; RESP 14; TEMP 36.9; O2SAT 98
[2021-07-08 08:41] VITALS: BMI 16.1
[2021-07-08 08:41] LABS: Basophils Absolute Auto 0.01 K/mm3 (0.00-0.10); Basophils Percent Auto 0.2 % (0.0-1.0); Eosinophils Absolute Auto 0.03 K/mm3 (0.02-0.50); Eosinophils Percent Auto 0.6 % (1.0-6.0); Hematocrit 33.1 % (40.0-54.0); Hemoglobin 11.5 g/dL (14.0-18.0); Immature Granulocyte Absolute 0.01 K/mm3 (0.00-0.00); Immature Granulocyte Percent A 0.2 % (0.0-0.0); Lymphocytes Absolute Auto 1.01 K/mm3 (1.10-4.50); Lymphocytes Percent Auto 18.7 % (18.0-42.0); Mean Corpuscular HGB Conc 34.7 g/dL (32.0-36.0); Mean Corpuscular Hemoglobin 31.5 pg (27.0-31.0); Mean Corpuscular Volume 90.7 fL (78.0-102.0); Mean Platelet Volume 9.5 fl (8.7-11.0); Monocytes Absolute Auto 0.79 K/mm3 (0.10-0.90); Monocytes Percent Auto 14.6 % (2.0-11.0); Neutrophils Absolute Auto 3.6 K/mm3 (1.7-7.2); Neutrophils Percent Auto 65.7 % (50.0-70.0); Platelet Count Result 126 K/mm3 (150-420); Red Blood Count 3.65 M/mm3 (4.70-6.10); Red Cell Distribution Width 15.5 % (11.6-14.4); White Blood Count 5.4 K/mm3 (4.8-10.8)
[2021-07-08 08:55] LABS: Alanine Aminotransferase 35 U/L (16-63); Alkaline Phosphatase 129 U/L (46-116); Anion Gap 11 mmol/L (8-16); Aspartate Amino Transferase 25 U/L (15-37); Bilirubin,Total 0.3 mg/dL (0.00-1.00); Blood Urea Nitrogen 21 mg/dL (7-18); Calcium 9.2 mg/dL (8.5-10.1); Carbon Dioxide 26 mmol/L (21-32); Chloride 101 mmol/L (98-108); Estimated CRCL calculation 45 ml/min; Estimated Glomerular Filt Rate > 60; Glucose 140 mg/dL (70-99); Magnesium 1.5 mg/dL (1.8-2.4); Osmolality Calculated 291 mOsm/kg (285-295); Potassium 3.5 mmol/L (3.5-5.1); Sodium 138 mmol/L (136-145); Total Protein 7.4 g/dL (6.4-8.2)
[2021-07-08] MEDS: diphenhydrAMINE HCl INJ 50 MG/ML VIAL 25 MG IV PUSH (09:15)
[2021-07-08] MEDS: FAMOTIDINE 20 MG/2 ML VIAL IV PUSH (09:18)
[2021-07-08] MEDS: DEXAMETHASONE SOD PHOS INJ 4 MG/ML VIAL 12 MG IV PUSH (09:38)
[2021-07-08 11:20] VITALS: BP 123/78; PULSE 78; RESP 14; TEMP 36.6; O2SAT 97
[2021-07-08] MEDS: HEPARIN SODIUM LOCK FLUSH 500 UNITS/5 ML SYRINGE IV PUSH (11:21)
--- NOTE | 2021-07-08 11:32 | PC.NURSE ---
Patient here for Day 15 of Cycle 3 chemo. Education given. Labs drawn and reviewed ok'd. Will be getting Magnesium 1 gm r/t Mag level 1.5. Has lost 4 lbs since last week. Will notified Dr. Dudley office. Denies nausea, just has no taste and doesn't want to eat. Chemo regimen administered. See MAR. Tolerated well. Will be here at hospital for CT scans, then see Dr. Dudley on Tuesday07/14/21. Anticipating Cycle 4 chemo day on 07/16/21, but could change after Dr. Dudley's appointment. Safe exit of hospital.
== END 2021-07-08 08:22 | disposition home or self-care (01) ==
LOC: CHSTREATRM 08:23
PROVIDERS: Visit Provider Internal Medicine Hematology & Oncology
DX: Z51.11 Encounter for antineoplastic chemotherapy (principal); C02.9 Malignant neoplasm of tongue, unspecified
CPT/HCPCS: 36415; 80053; 83735; 85025; 85055; 96367; 96375; 96413; J1200; J3475; J7050; J9055

== ENCOUNTER 2021-07-13 07:19 | Outpatient (CLI) | payer OTHER, SELFPAY ==
--- NOTE | ~2021-07-13 | CT_ITS ---
EXAMINATION: CT soft tiss nk chst ab pel w EXAM DATE: 07/13/2021 08:39 INDICATION: Lung Nodules, Squamous cell carcinoma squamous cell CA base of tongue, see hx sheet . Has sore throat, fatigue. Can't eat. Left ear pain. TECHNIQUE: Spiral CT of the neck, chest, abdomen and pelvis was performed following intravenous injec tion of 100 mL Omnipaque 350. Axial, coronal and sagittal images of the neck were reviewed. Axial, coronal and sagittal images of the chest were reviewed. Coronal maximum intensity pixel images of ch est reviewed. Axial, coronal and sagittal images of the abdomen and pelvis were reviewed. The dose- length product (DLP) for this examination was 894.61 mGy-cm. The exposure was tailored according to patient size (auto mA exposure control), and iterative reconstruction (ASIR) was used as additional d ose reduction technique. Comparison is made to prior examination from 04/23/2021. FINDINGS: NECK: There is there is progression of edema, thickening of the mucosal regions epiglottis, the aryep iglottic folds, effacement of the left preglottic fat, the left vallecula and piriform sinus. There i s edema extending within the fascial planes of the left side of the neck, thickened appearing sternoc leidomastoid compared to contralateral side. Again there is complete effacement of the left internal jugular vein. There is no intraluminal filling defect, no venous thrombus identified. Development of edema within the prevertebral region. Probably edema from recent radiation treatment. Nasopharynx unr emarkable. Right internal jugular vein widely patent. Codominant vertebral arteries. The thyroid glan d is unremarkable. The submandibular and parotid glands are symmetric. There is no cervical lymph adenopathy. Mild bilateral carotid bulb arterial sclerosis without stenosis. The orbits are unremar kable. Visualized sinuses and mastoid air cells are well aerated. There is advanced cervical spon dylosis. CHEST: There is a right-sided portacatheter. There is mild to moderate emphysema. There are approxima tely 30 pulmonary metastases, several demonstrating some amount of cavitation. These measure up to ab out 8 mm in diameter, many which demonstrate mild interval decrease in size. There are no pleural or pericardial effusions. Tracheobronchial tree is patent. Significant improvement in size of subca rinal lymph node, most likely treatment related improvement in metastatic lymphadenopathy. There is no pneumothorax. Heart normal in size. There is mild coronary arterial calcification, arterial sc lerosis. ABDOMEN PELVIS: Patient is cachectic. Development of heterogeneously enhancing liver, which is nonspe cific. The liver, spleen, adrenal glands and pancreas are otherwise unremarkable. Gallbladder is un remarkable. No biliary obstruction. Portal and splenic veins are patent. Kidneys enhance symmetric ally. There is no hydronephrosis. There is 2.2 cm right renal cyst. The prostate is unremarkable. The bladder is unremarkable. There is no retroperitoneal or pelvic lymphadenopathy. There is overa ll moderate scattered arteriosclerotic disease with moderate to severe stenosis of the right common i liac artery. The appendix is not positively visualized. There is no pericecal inflammatory change to suggest appe ndicitis. The stomach and small bowel are unremarkable. Moderately distended rectal vault with sto ol. No free intraperitoneal gas. There are no osteoblastic or osteolytic lesions identified. IMPRESSION: 1. Left-sided oropharyngeal, laryngeal, prevertebral, sternocleidomastoid edema likely treatment rel ated change with mild progression compared to prior study. 2. Mild improvement in scattered subcentimeter pulmonary metastases. 3. Normalization of metastatic subcarinal lymph node. 4. Development of heterogeneous liver enhancement could indicate some component of cirrh
[2021-07-13 07:44] LABS: Basophils Absolute Auto 0.01 K/mm3 (0.00-0.10); Basophils Percent Auto 0.2 % (0.0-1.0); Eosinophils Absolute Auto 0.03 K/mm3 (0.02-0.50); Eosinophils Percent Auto 0.5 % (1.0-6.0); Hematocrit 33.1 % (40.0-54.0); Hemoglobin 11.1 g/dL (14.0-18.0); Immature Granulocyte Absolute 0.02 K/mm3 (0.00-0.00); Immature Granulocyte Percent A 0.4 % (0.0-0.0); Lymphocytes Percent Auto 16.2 % (18.0-42.0); Mean Corpuscular HGB Conc 33.5 g/dL (32.0-36.0); Mean Corpuscular Volume 92.5 fL (78.0-102.0); Mean Platelet Volume 10.2 fl (8.7-11.0); Monocytes Absolute Auto 0.81 K/mm3 (0.10-0.90); Monocytes Percent Auto 14.6 % (2.0-11.0); Neutrophils Absolute Auto 3.8 K/mm3 (1.7-7.2); Neutrophils Percent Auto 68.1 % (50.0-70.0); Platelet Count Result 121 K/mm3 (150-420); Red Blood Count 3.58 M/mm3 (4.70-6.10); Red Cell Distribution Width 16.3 % (11.6-14.4); White Blood Count 5.6 K/mm3 (4.8-10.8)
[2021-07-13 07:49] LABS: Alanine Aminotransferase 46 U/L (16-63); Albumin Level 2.6 g/dL (3.4-5.0); Alkaline Phosphatase 123 U/L (46-116); Anion Gap 13 mmol/L (8-16); Aspartate Amino Transferase 30 U/L (15-37); Bilirubin,Total 0.3 mg/dL (0.00-1.00); Blood Urea Nitrogen 17 mg/dL (7-18); Calcium 8.8 mg/dL (8.5-10.1); Carbon Dioxide 26 mmol/L (21-32); Chloride 102 mmol/L (98-108); Estimated Glomerular Filt Rate > 60; Glucose 161 mg/dL (70-99); Magnesium 1.3 mg/dL (1.8-2.4); Osmolality Calculated 296 mOsm/kg (285-295); Potassium 3.5 mmol/L (3.5-5.1); Sodium 141 mmol/L (136-145)
== END 2021-07-13 07:20 | disposition home or self-care (01) ==
PROVIDERS: Visit Provider Internal Medicine Hematology & Oncology
DX: R91.8 Other nonspecific abnormal finding of lung field (principal); C01 Malignant neoplasm of base of tongue
CPT/HCPCS: 36415; 70491; 71260; 74177; 80053; 83735; 85025; 85055; Q9967

== ENCOUNTER 2021-07-31 11:04 | Outpatient (CLI) | payer OTHER, SELFPAY ==
[2021-07-31] MEDS: SODIUM CHLORIDE 0.9% IV 1,000 ML 1000 ML IVPB (11:15)
[2021-07-31 12:01] VITALS: BP 108/53; PULSE 100; RESP 20; TEMP 36.4; O2SAT 94
--- NOTE | 2021-07-31 12:13 | PC.NURSE ---
Patient here to get 1 L NS over 1 hr r/t dehydration and poor oral intake. Current chemo patient. NS IV administered per patent port SEE MAR> Patient is weak. Will be seeing Dr. Dudley over in clinic at 1 pm after this. Blood drawn for CBC CMP prior start of infusion.
[2021-07-31 12:19] LABS: Basophils Absolute Auto 0.02 K/mm3 (0.00-0.10); Basophils Percent Auto 0.2 % (0.0-1.0); Eosinophils Absolute Auto 0.01 K/mm3 (0.02-0.50); Eosinophils Percent Auto 0.1 % (1.0-6.0); Hematocrit 27.2 % (40.0-54.0); Hemoglobin 8.9 g/dL (14.0-18.0); Immature Granulocyte Absolute 0.09 K/mm3 (0.00-0.00); Immature Granulocyte Percent A 0.8 % (0.0-0.0); Immature Platelet Fraction Pct 1.7 % (1.0-7.0); Lymphocytes Absolute Auto 0.83 K/mm3 (1.10-4.50); Lymphocytes Percent Auto 6.9 % (18.0-42.0); Mean Corpuscular HGB Conc 32.7 g/dL (32.0-36.0); Mean Corpuscular Hemoglobin 31.4 pg (27.0-31.0); Mean Corpuscular Volume 96.1 fL (78.0-102.0); Mean Platelet Volume 9.9 fl (8.7-11.0); Monocytes Absolute Auto 1.57 K/mm3 (0.10-0.90); Monocytes Percent Auto 13.1 % (2.0-11.0); Neutrophils Absolute Auto 9.4 K/mm3 (1.7-7.2); Neutrophils Percent Auto 78.9 % (50.0-70.0); Platelet Count Result 709 K/mm3 (150-420); Red Blood Count 2.83 M/mm3 (4.70-6.10); Red Cell Distribution Width 17.4 % (11.6-14.4)
[2021-07-31] MEDS: HEPARIN SODIUM LOCK FLUSH 500 UNITS/5 ML SYRINGE (12:19)
[2021-07-31 12:26] LABS: Alanine Aminotransferase 107 U/L (16-63); Albumin Level 2.5 g/dL (3.4-5.0); Alkaline Phosphatase 156 U/L (46-116); Anion Gap 12 mmol/L (8-16); Aspartate Amino Transferase 36 U/L (15-37); Bilirubin,Total 0.3 mg/dL (0.00-1.00); Blood Urea Nitrogen 23 mg/dL (7-18); Calcium 9.5 mg/dL (8.5-10.1); Carbon Dioxide 25 mmol/L (21-32); Chloride 101 mmol/L (98-108); Estimated Glomerular Filt Rate > 60; Glucose 144 mg/dL (70-99); Osmolality Calculated 292 mOsm/kg (285-295); Potassium 3.8 mmol/L (3.5-5.1); Sodium 138 mmol/L (136-145); Total Protein 7.4 g/dL (6.4-8.2)
== END 2021-07-31 11:05 | disposition home or self-care (01) ==
PROVIDERS: Visit Provider Internal Medicine Hematology & Oncology
DX: C01 Malignant neoplasm of base of tongue (principal)
CPT/HCPCS: 36415; 80053; 85025; 85055; 96360; J7030

== ENCOUNTER 2021-08-01 14:27 | Emergency (ER) | payer OTHER, SELFPAY ==
[2021-08-01 14:35] VITALS: BP 137/95; PULSE 121; RESP 20; TEMP 36.7; O2SAT 100
--- NOTE | 2021-08-01 14:42 | ED.SOB ---
HPI - SOB/Dyspnea General Chief Complaint: Shortness of Breath/Dyspnea Stated Complaint: SOB, neck pain, unable to drink/eat, throat cancer Time Seen by Provider: 08/01/21 14:42 Source: patient History of Present Illness HPI Narrative: 61-year-old white male with a history of oral cancer/ lung cancer diagnosed in January of 2021 status post chemo and RT presents to the ER with -- difficulty swallowing. Is unable to swallow solids and liquids. He is due to get an endoscopy to evaluate his swallowing difficulty. -- Profound weakness. -- Chronic shortness of breath -- cough with mucoid and mucopurulent sputum. Had blood work done yesterday which revealed WBC-12, H/H-05/11, Plat-709 BMP-normal except BUN of 23 MD elicited complaint: shortness of breath, cough and anxiety Onset (ago): day(s) Associated symptoms: denies other symptoms, cough and sputum production Treatment prior to arrival: none Related Data Home oxygen amount: none Home Medications Medication Instructions Recorded Confirmed ondansetron 8 mg PO Q8H PRN 05/14/21 08/01/21 prochlorperazine maleate 10 mg PO Q8H PRN 05/14/21 08/01/21 Allergies Allergy/AdvReac Type Severity Reaction Status Date / Time No Known Allergies Allergy Verified 05/14/21 09:24 Review of Systems Review of Systems: All systems reviewed & are unremarkable except as noted in HPI and below Constitutional: Constitutional: Reports as per HPI and Reports anorexia Eyes: Eyes: Reports as per HPI and Reports no additional eye complaints ENT: Reports system reviewed and no additional complaints, except as documented and Reports dysphagia Cardiovascular: Cardiovascular: Reports as per HPI and Reports no additional cardiovascular complaints Respiratory: Respiratory: Reports as per HPI, Reports no additional respiratory complaints, Reports cough and Reports dyspnea Gastrointestinal: Gastrointestinal: Reports as per HPI and Reports no additional gastrointestinal complaints Genitourinary: Genitourinary: Reports no additional male genitourinary complaints and Reports as per HPI Musculoskeletal: Musculoskeletal: Reports no additional musculoskeletal complaints and Reports as per HPI Integumentary/Breasts: Skin/Breast: Reports system reviewed and no additional complaints, except as docu Neurologic: Reports system reviewed and no additional complaints, except as documented Psychiatric: Psychiatric: Reports no additional psychiatric complaints Endocrine: Endocrine: Reports no additional endocrine complaints Hematologic/Lymphatic: Hematologic/Lymphatic: Reports no additional hematologic/lymphatic complaints Allergic/Immunologic: Allergic/Immunologic: Reports no additional allergic/immunologic complaints [facility] Social History Social History Smoking status: Former smoker Exam Const: General: cooperative, ill appearing and other ( appears cachectic) Nutritional Appearance: cachectic Orientation/consciousness: oriented to person, oriented to place, oriented to time and patient oriented x3 HENMT: Head: normal to inspection and No palpable skull fracture present Ears: hearing grossly normal bilaterally General nose exam: Normal external nose present Face and sinus: normal facial exam Mouth: Yes Normal oral and palatal mucosa present Throat: posterior oropharynx normal Eyes: General: appearance normal, both eyes and all related structures Neck: Neck: normal visual inspection and full ROM Chest: Chest palpation & inspection: normal inspection of the chest and normal palpation of entire chest wall Resp: Effort & Inspection: normal respiratory effort and able to speak in complete sentences Auscultation: diminished lung sounds Cardio: Palpation: normal PMI Heart sounds: S1 normal heart sound present and S2 normal heart sound present GI: Inspection: normal to inspection GI Palp: Yes Other GI palpation findings present ( no tenderness/ri
[2021-08-01] MEDS: LACTATED RINGERS 1,000 ML 999 ML IV CONT (15:32)
[2021-08-01] MEDS: HYDROcodone/acetaminophen (*CRX) 5-325 MG TABLET 1 TAB PO (15:33)
--- NOTE | 2021-08-01 16:02 | PC.NURSE ---
1533 pt able to take 1/2 norco pill with applesauce. pt then requested water. pt took drink of water and started coughing. spitting up clear phlegm. no pill noted in bag. 1545 pt continues spitting up phlegm. at bedside. 1600 no beds available at [facility]. pt does have appointment for egd scope in [place] on tuesday.
[2021-08-01] MEDS: ONDANSETRON INJ 4 MG/2 ML VIAL IV PUSH (16:12)
[2021-08-01] MEDS: HYDROmorphone HCL INJ (*CRX) 2 MG/ML VIAL 1 MG SUB-Q (16:12)
[2021-08-01 17:05] VITALS: TEMP 37.1
[2021-08-01 17:23] VITALS: BP 144/96; PULSE 109; RESP 20; TEMP 37.1; O2SAT 95
== END 2021-08-01 17:24 | disposition home or self-care (01) ==
PROVIDERS: Emergency Provider Internal Medicine Critical Care Medicine
DX: R13.13 Dysphagia, pharyngeal phase (principal)
CPT/HCPCS: 96361; 96372; 96374; 99283; 99284; A9270; J1170; J2405; J7120

== ENCOUNTER 2021-09-10 08:23 | Outpatient (CLI) | payer OTHER, SELFPAY ==
[2021-09-10 08:47] LABS: Basophils Absolute Auto 0.03 K/mm3 (0.00-0.10); Basophils Percent Auto 0.4 % (0.0-1.0); Eosinophils Absolute Auto 0.06 K/mm3 (0.02-0.50); Eosinophils Percent Auto 0.9 % (1.0-6.0); Hematocrit 31.2 % (40.0-54.0); Immature Granulocyte Absolute 0.02 K/mm3 (0.00-0.00); Immature Granulocyte Percent A 0.3 % (0.0-0.0); Lymphocytes Absolute Auto 0.62 K/mm3 (1.10-4.50); Lymphocytes Percent Auto 9.1 % (18.0-42.0); Mean Corpuscular HGB Conc 32.1 g/dL (32.0-36.0); Mean Corpuscular Hemoglobin 29.6 pg (27.0-31.0); Mean Corpuscular Volume 92.3 fL (78.0-102.0); Mean Platelet Volume 10.4 fl (8.7-11.0); Monocytes Absolute Auto 0.94 K/mm3 (0.10-0.90); Monocytes Percent Auto 13.8 % (2.0-11.0); Neutrophils Absolute Auto 5.1 K/mm3 (1.7-7.2); Neutrophils Percent Auto 75.5 % (50.0-70.0); Platelet Count Result 262 K/mm3 (150-420); Red Blood Count 3.38 M/mm3 (4.70-6.10); Red Cell Distribution Width 13.9 % (11.6-14.4); White Blood Count 6.8 K/mm3 (4.8-10.8)
[2021-09-10 08:48] VITALS: BP 115/78; PULSE 79; RESP 14; TEMP 36.6; O2SAT 100
[2021-09-10 08:49] VITALS: BMI 15.7
[2021-09-10 09:10] LABS: Alanine Aminotransferase 66 U/L (16-63); Albumin Level 3.1 g/dL (3.4-5.0); Alkaline Phosphatase 168 U/L (46-116); Anion Gap 8 mmol/L (8-16); Aspartate Amino Transferase 65 U/L (15-37); Bilirubin,Total 0.2 mg/dL (0.00-1.00); Blood Urea Nitrogen 33 mg/dL (7-18); Calcium 9.6 mg/dL (8.5-10.1); Carbon Dioxide 30 mmol/L (21-32); Chloride 97 mmol/L (98-108); Estimated CRCL calculation 54 ml/min; Estimated Glomerular Filt Rate > 60; Glucose 114 mg/dL (70-99); Osmolality Calculated 288 mOsm/kg (285-295); Potassium 4.1 mmol/L (3.5-5.1); Sodium 135 mmol/L (136-145); Thyroid Stimulating Hormone 0.92 uIU/mL (0.36-3.74); Total Protein 7.8 g/dL (6.4-8.2)
[2021-09-10] MEDS: SODIUM CHLORIDE 0.9% IV 250 ML 10 ML IVPB (09:20)
--- NOTE | 2021-09-10 09:49 | PC.NURSE ---
Patient here for cycle 1 chemo of Opdivo. Education given. All concerns voiced. Labs drawn and reviewed and ok'd. Opdivo administered via patent port. Tolerated well. Safe exit of hospital. Will return 10/08/21 at 830 a.m.
[2021-09-10] MEDS: HEPARIN SODIUM LOCK FLUSH 500 UNITS/5 ML SYRINGE IV PUSH (09:57)
[2021-09-10 10:05] VITALS: BP 120/76; PULSE 80; RESP 14; TEMP 36.6; O2SAT 99
[2021-09-14 12:19] LABS: Cortisol Random 23.5 mcg/dL (***)
== END 2021-09-10 08:24 | disposition home or self-care (01) ==
PROVIDERS: Visit Provider Internal Medicine Hematology & Oncology
DX: Z51.11 Encounter for antineoplastic chemotherapy (principal); C02.9 Malignant neoplasm of tongue, unspecified
CPT/HCPCS: 36415; 80053; 82533; 84443; 85025; 96413; J7050; J9299

== ENCOUNTER 2021-09-25 09:39 | Outpatient (CLI) | payer OTHER, SELFPAY ==
[2021-09-25 09:58] LABS: Basophils Absolute Auto 0.03 K/mm3 (0.00-0.10); Basophils Percent Auto 0.4 % (0.0-1.0); Eosinophils Absolute Auto 0.03 K/mm3 (0.02-0.50); Eosinophils Percent Auto 0.4 % (1.0-6.0); Hematocrit 31.6 % (40.0-54.0); Hemoglobin 9.9 g/dL (14.0-18.0); Immature Granulocyte Absolute 0.02 K/mm3 (0.00-0.00); Immature Granulocyte Percent A 0.3 % (0.0-0.0); Lymphocytes Absolute Auto 0.44 K/mm3 (1.10-4.50); Lymphocytes Percent Auto 5.8 % (18.0-42.0); Mean Corpuscular HGB Conc 31.3 g/dL (32.0-36.0); Mean Corpuscular Hemoglobin 29.6 pg (27.0-31.0); Mean Corpuscular Volume 94.3 fL (78.0-102.0); Mean Platelet Volume 10.2 fl (8.7-11.0); Monocytes Absolute Auto 0.91 K/mm3 (0.10-0.90); Monocytes Percent Auto 12.1 % (2.0-11.0); Neutrophils Absolute Auto 6.1 K/mm3 (1.7-7.2); Platelet Count Result 216 K/mm3 (150-420); Red Blood Count 3.35 M/mm3 (4.70-6.10); Red Cell Distribution Width 13.6 % (11.6-14.4); White Blood Count 7.5 K/mm3 (4.8-10.8)
[2021-09-25 10:28] LABS: Alanine Aminotransferase 47 U/L (16-63); Albumin Level 3.1 g/dL (3.4-5.0); Alkaline Phosphatase 178 U/L (46-116); Anion Gap 11 mmol/L (8-16); Aspartate Amino Transferase 48 U/L (15-37); Bilirubin,Total 0.2 mg/dL (0.00-1.00); Blood Urea Nitrogen 31 mg/dL (7-18); Calcium 9.5 mg/dL (8.5-10.1); Carbon Dioxide 28 mmol/L (21-32); Chloride 97 mmol/L (98-108); Estimated Glomerular Filt Rate > 60; Free T4 Free Thyroxine 1.24 ng/dL (0.76-1.46); Glucose 111 mg/dL (70-99); Osmolality Calculated 289 mOsm/kg (285-295); Potassium 4.2 mmol/L (3.5-5.1); Sodium 136 mmol/L (136-145); Thyroid Stimulating Hormone 1.01 uIU/mL (0.36-3.74); Total Protein 7.6 g/dL (6.4-8.2)
[2021-09-30 06:53] LABS: Cortisol Random 23.1 mcg/dL (***)
== END 2021-09-25 09:40 | disposition home or self-care (01) ==
LOC: CHSLAB 09:43
PROVIDERS: Visit Provider Internal Medicine Hematology & Oncology
DX: C01 Malignant neoplasm of base of tongue (principal)
CPT/HCPCS: 36415; 80053; 82533; 84439; 84443; 85025

== ENCOUNTER 2021-10-08 08:33 | Outpatient (CLI) | payer OTHER, SELFPAY ==
[2021-10-08 08:55] VITALS: BMI 15.7
[2021-10-08 08:58] LABS: Hematocrit 28.4 % (40.0-54.0); Mean Corpuscular HGB Conc 31.7 g/dL (32.0-36.0); Mean Corpuscular Hemoglobin 29.4 pg (27.0-31.0); Mean Corpuscular Volume 92.8 fL (78.0-102.0); Mean Platelet Volume 10.1 fl (8.7-11.0); Platelet Count Result 283 K/mm3 (150-420); Red Blood Count 3.06 M/mm3 (4.70-6.10); Red Cell Distribution Width 14.5 % (11.6-14.4); White Blood Count 7.3 K/mm3 (4.8-10.8)
[2021-10-08] MEDS: SODIUM CHLORIDE 0.9% IV 250 ML 10 ML IVPB (09:00)
[2021-10-08 09:03] VITALS: BP 100/62; PULSE 84; RESP 14; TEMP 36.6; O2SAT 100
[2021-10-08 09:14] LABS: Band Neutrophils Percent 3 % (0-6); Basophils Absolute Manual 0.14 K/mm3 (0-0.1); Basophils Percent Manual 2 % (0-1); Lymphocytes Absolute Manual 0.43 K/mm3 (1.1-4.5); Lymphocytes Percent Manual 6 % (18-44); Monocytes Absolute Manual 1.09 K/mm3 (0.1-0.90); Monocytes Percent Manual 15 % (3-9); Neutrophils Absolute Manual 5.62 K/mm3 (1.3-6.7); Neutrophils Percent Manual 74 % (46-73); Platelet Estimate Adequate (Adequate); Total Cells Counted 100
[2021-10-08 09:19] LABS: Alanine Aminotransferase 44 U/L (16-63); Alkaline Phosphatase 214 U/L (46-116); Anion Gap 9 mmol/L (8-16); Aspartate Amino Transferase 44 U/L (15-37); Bilirubin,Total 0.2 mg/dL (0.00-1.00); Blood Urea Nitrogen 23 mg/dL (7-18); Calcium 9.3 mg/dL (8.5-10.1); Carbon Dioxide 29 mmol/L (21-32); Chloride 98 mmol/L (98-108); Estimated CRCL calculation 50 ml/min; Estimated Glomerular Filt Rate > 60; Glucose 115 mg/dL (70-99); Osmolality Calculated 286 mOsm/kg (285-295); Potassium 4.1 mmol/L (3.5-5.1); Sodium 136 mmol/L (136-145); Total Protein 7.5 g/dL (6.4-8.2)
[2021-10-08] MEDS: HEPARIN SODIUM LOCK FLUSH 500 UNITS/5 ML SYRINGE IV PUSH (09:36)
--- NOTE | 2021-10-08 09:45 | PC.NURSE ---
Patient here for Opdivo IV chemo #2 of 3 q 4 weeks. No concerns on chemo. Just reports feeling tired all the time. Labs drawn and reviewed. Ok'd to give chemo. Opdivo administered. See MAR. Tolerated well. Will return November 05, 2021 @ 9100.
== END 2021-10-08 08:34 | disposition home or self-care (01) ==
PROVIDERS: Visit Provider Internal Medicine Hematology & Oncology
DX: Z51.11 Encounter for antineoplastic chemotherapy (principal); C02.9 Malignant neoplasm of tongue, unspecified
CPT/HCPCS: 36415; 80053; 85025; 96413; J7050; J9299

== ENCOUNTER 2021-11-02 08:52 | Outpatient (CLI) | payer OTHER, SELFPAY ==
[2021-11-02 09:22] LABS: Basophils Absolute Auto 0.03 K/mm3 (0.00-0.10); Basophils Percent Auto 0.3 % (0.0-1.0); Eosinophils Absolute Auto 0.06 K/mm3 (0.02-0.50); Eosinophils Percent Auto 0.5 % (1.0-6.0); Hematocrit 30.3 % (40.0-54.0); Hemoglobin 9.5 g/dL (14.0-18.0); Immature Granulocyte Absolute 0.06 K/mm3 (0.00-0.00); Immature Granulocyte Percent A 0.5 % (0.0-0.0); Lymphocytes Absolute Auto 0.48 K/mm3 (1.10-4.50); Lymphocytes Percent Auto 4.1 % (18.0-42.0); Mean Corpuscular HGB Conc 31.4 g/dL (32.0-36.0); Mean Corpuscular Hemoglobin 28.6 pg (27.0-31.0); Mean Corpuscular Volume 91.3 fL (78.0-102.0); Mean Platelet Volume 10.1 fl (8.7-11.0); Monocytes Absolute Auto 1.38 K/mm3 (0.10-0.90); Monocytes Percent Auto 11.8 % (2.0-11.0); Neutrophils Absolute Auto 9.7 K/mm3 (1.7-7.2); Neutrophils Percent Auto 82.8 % (50.0-70.0); Platelet Count Result 308 K/mm3 (150-420); Red Blood Count 3.32 M/mm3 (4.70-6.10); Red Cell Distribution Width 14.6 % (11.6-14.4); White Blood Count 11.7 K/mm3 (4.8-10.8)
[2021-11-02 10:12] LABS: Alanine Aminotransferase 55 U/L (16-63); Albumin Level 3.1 g/dL (3.4-5.0); Alkaline Phosphatase 297 U/L (46-116); Anion Gap 8 mmol/L (8-16); Aspartate Amino Transferase 54 U/L (15-37); Bilirubin,Total 0.2 mg/dL (0.00-1.00); Blood Urea Nitrogen 39 mg/dL (7-18); Calcium 9.4 mg/dL (8.5-10.1); Carbon Dioxide 31 mmol/L (21-32); Chloride 96 mmol/L (98-108); Estimated Glomerular Filt Rate > 60; Glucose 140 mg/dL (70-99); Osmolality Calculated 291 mOsm/kg (285-295); Potassium 3.9 mmol/L (3.5-5.1); Sodium 135 mmol/L (136-145); Total Protein 7.8 g/dL (6.4-8.2)
[2021-11-02 10:19] LABS: Thyroid Stimulating Hormone Reflex 0.83 u/IU/mL (0.36-3.74)
[2021-11-06 12:54] LABS: Cortisol Random 28.1 mcg/dL (***)
== END 2021-11-02 08:53 | disposition home or self-care (01) ==
LOC: CHSLAB 08:55
PROVIDERS: PCP Internal Medicine Hematology & Oncology; Visit Provider Internal Medicine Hematology & Oncology
DX: C01 Malignant neoplasm of base of tongue (principal); D64.9 Anemia, unspecified
CPT/HCPCS: 36415; 80053; 82533; 84443; 85025

== ENCOUNTER 2021-11-05 08:24 | Outpatient (CLI) | payer OTHER, SELFPAY ==
[2021-11-05] MEDS: SODIUM CHLORIDE 0.9% IV 250 ML 10 ML IVPB (08:35)
[2021-11-05 08:38] VITALS: BP 111/69; PULSE 89; RESP 16; TEMP 36.5
[2021-11-05 08:39] VITALS: BMI 15.5
[2021-11-05 09:31] VITALS: BP 121/60; PULSE 88; RESP 14; O2SAT 96
[2021-11-05] MEDS: HEPARIN SODIUM LOCK FLUSH 500 UNITS/5 ML SYRINGE IV PUSH (09:33)
--- NOTE | 2021-11-05 09:33 | PC.NURSE ---
Patient here for cycle #4 of Nivolumab chemo. No concerns voiced. Reviewed and ok'd labs from Tuesday11/02/21. IV Nivolumab chemo administered. See MAR. Tolerated well. Safe exit of hospital. Will see Dr. Dudley tomorrow in clinic. Will return for cycle 5 December 03, 2021.
== END 2021-11-05 08:25 | disposition home or self-care (01) ==
PROVIDERS: Visit Provider Internal Medicine Hematology & Oncology
DX: Z51.11 Encounter for antineoplastic chemotherapy (principal); C02.9 Malignant neoplasm of tongue, unspecified
CPT/HCPCS: 96413; J7050; J9299